=== PATIENT | male | born 1940 | race Caucasian/White ===

== ENCOUNTER → 2022-04-10 13:15 | Outpatient (BNVA) | payer MEDICARE, SELFPAY | PROVIDERS: Referring Provider Dermatology; Visit Provider Physician Assistant | DX: M51.36 Other intervertebral disc degeneration, lumbar region (principal); M48.062 Spinal stenosis, lumbar region with neurogenic claudication; M25.561 Pain in right knee; Z98.1 Arthrodesis status | CPT/HCPCS: 72110; 73560; 73565; 99203; 99204 ==

== ENCOUNTER 2022-05-30 11:51 | Outpatient (CLI) | payer MEDICARE, SELFPAY ==
--- NOTE | 2022-05-30 11:45 | MR_ITS ---
WS: [id number] MRI LUMBAR SPINE NONCONTRAST TECHNIQUE: Sagittal T1, T2 and STIR imaging. Axial T1 and T2 imaging. CLINICAL INFORMATION: knee pain COMPARISON: None. FINDINGS: Mild lumbar curve. Pedicle screw fixation L3-L4 with interbody fusion graft. Disc bulging worse at L2 -L3 and L5-S1. L1-L2: Mild disc bulging. Slight effacement of ventral thecal sac. Small RIGHT foraminal protrusion w ith mild RIGHT foraminal narrowing. LEFT foramen is patent. Mild facet arthropathy. L2-L3: Mild disc bulging with moderate central canal stenosis. Impingement traversing L3 nerve roots bilaterally RIGHT greater than LEFT. Small bilateral foraminal protrusions with mild RIGHT greater th an LEFT foraminal narrowing. Mild facet arthropathy. L3-L4: Pedicle screw fixation with interbody fusion. Mild central canal stenosis. Slight impingement traversing L4 nerve roots bilaterally. Moderate facet arthropathy. Mild bilateral foraminal narrowing . L4-L5: Disc desiccation with osteophytic ridging. Spinal canal is patent. Pedicle screw fixation. Mod erate LEFT bony foraminal narrowing. Mild RIGHT foraminal narrowing. Spinal canal is patent. L5-S1: Disc osteophytic ridging. Small bilateral foraminal protrusions with mild RIGHT greater than L EFT foraminal narrowing. Spinal canal is patent. Mild facet arthropathy. LEFT renal cyst measuring 2.5 cm. Visualized pelvic bony structures: Normal. Paravertebral soft tissues: Normal. MR/MR lumbar spine wo con* [id number] IMPRESSION: 1. Mild lumbar curve. No acute compression. Pedicle screw fixation L3-L4 with interbody fusion graft. 2. Disc bulging L2-L3 with moderate central canal stenosis and impingement on the traversing RIGHT greater than LEFT L3 nerve roots. Mild RIGHT foraminal last rowing at this level impinges the exiting RIGHT L2 nerve root. 3. Mild central canal stenosis L3-L4 with mild LEFT foraminal narrowing. 4. Moderate LEFT L4-L5 bony foraminal narrowing with encroachment on the exiti ng LEFT L4 nerve root. 5. Mild RIGHT L5-S1 foraminal narrowing.
== END 2022-05-30 11:52 | disposition home or self-care (01) ==
LOC: RAD 11:51
PROVIDERS: Visit Provider Physician Assistant
DX: M48.061 Spinal stenosis, lumbar region without neurogenic claudication (principal); M51.26 Other intervertebral disc displacement, lumbar region
CPT/HCPCS: 72148

== ENCOUNTER → 2022-07-03 13:21 | Outpatient (BNVA) | payer MEDICARE, SELFPAY | PROVIDERS: Visit Provider Physician Assistant | DX: M48.062 Spinal stenosis, lumbar region with neurogenic claudication (principal); M51.36 Other intervertebral disc degeneration, lumbar region; M47.816 Spondylosis without myelopathy or radiculopathy, lumbar region; Z98.1 Arthrodesis status | CPT/HCPCS: 99213 ==

== ENCOUNTER → 2022-08-01 10:28 | Outpatient (BNVA) | payer MEDICARE, SELFPAY | PROVIDERS: Visit Provider Anesthesiology Pain Medicine | DX: M48.062 Spinal stenosis, lumbar region with neurogenic claudication (principal); M47.816 Spondylosis without myelopathy or radiculopathy, lumbar region; M51.36 Other intervertebral disc degeneration, lumbar region; Z98.1 Arthrodesis status; M79.604 Pain in right leg; M79.605 Pain in left leg | CPT/HCPCS: 99205 ==

== ENCOUNTER → 2022-08-21 12:49 | Outpatient (BNVA) | payer MEDICARE, SELFPAY | PROVIDERS: Visit Provider Anesthesiology Pain Medicine | DX: M47.816 Spondylosis without myelopathy or radiculopathy, lumbar region (principal); M48.062 Spinal stenosis, lumbar region with neurogenic claudication | CPT/HCPCS: 64493; 64494; 64495; J3490 ==

== ENCOUNTER → 2022-09-04 12:41 | Outpatient (BNVA) | payer MEDICARE, SELFPAY | PROVIDERS: Visit Provider Anesthesiology Pain Medicine | DX: M47.816 Spondylosis without myelopathy or radiculopathy, lumbar region (principal); M48.062 Spinal stenosis, lumbar region with neurogenic claudication | CPT/HCPCS: 64493; 64494; 64495; J3490 ==

== ENCOUNTER → 2022-09-20 13:40 | Outpatient (BNVA) | payer MEDICARE, SELFPAY | PROVIDERS: Visit Provider Anesthesiology Pain Medicine | DX: M48.062 Spinal stenosis, lumbar region with neurogenic claudication (principal); M47.816 Spondylosis without myelopathy or radiculopathy, lumbar region; M51.36 Other intervertebral disc degeneration, lumbar region; Z98.1 Arthrodesis status; M79.604 Pain in right leg; M79.605 Pain in left leg | CPT/HCPCS: 99214 ==

== ENCOUNTER → 2022-12-19 14:42 | Outpatient (BNVA) | payer MEDICARE, SELFPAY | PROVIDERS: Visit Provider Anesthesiology Pain Medicine | DX: M47.816 Spondylosis without myelopathy or radiculopathy, lumbar region (principal); M48.062 Spinal stenosis, lumbar region with neurogenic claudication | CPT/HCPCS: 64635; 64636; J1030 ==

== ENCOUNTER → 2023-01-02 13:41 | Outpatient (BNVA) | payer MEDICARE, SELFPAY | PROVIDERS: Visit Provider Anesthesiology Pain Medicine | DX: M47.816 Spondylosis without myelopathy or radiculopathy, lumbar region (principal); M48.062 Spinal stenosis, lumbar region with neurogenic claudication | CPT/HCPCS: 64635; 64636 ==

== ENCOUNTER → 2023-01-23 11:35 | Outpatient (BNVA) | payer MEDICARE, SELFPAY | PROVIDERS: Visit Provider Anesthesiology Pain Medicine | DX: M54.9 Dorsalgia, unspecified (principal); M25.559 Pain in unspecified hip; M47.896 Other spondylosis, lumbar region; M48.062 Spinal stenosis, lumbar region with neurogenic claudication; M47.816 Spondylosis without myelopathy or radiculopathy, lumbar region; M51.36 Other intervertebral disc degeneration, lumbar region; Z98.1 Arthrodesis status; M79.604 Pain in right leg | CPT/HCPCS: 72110; 73502; 99214 ==